=== PATIENT | male | born 1945 | race Caucasian/White ===

== ENCOUNTER 2017-09-10 10:50 | Day surgery (SDC) | payer MEDICARE, OTHER ==
[2017-09-09 15:16] VITALS: BP 152/78
[~2017-09-10] VITALS: Ht 180.3 cm; Wt 101.0 kg
[2017-09-10] VITALS (20 sets, daily range): BP systolic 127–182; BP diastolic 70–101
[~2017-09-10 10:50] MED LIST: ATEN25TA PO; ATOR20TA65 PO; DABI150C PO; LIMBREL PO; LOSA50TA37 PO; OMEP20TA25 PO
[2017-09-10] MEDS: CEFAZOLIN 3GM /D5W 100ML 100 ML IV SCH ×2 (11:00→13:45)
[2017-09-10] MEDS ORDERED: WATER FOR INJECTION,STERILE 20 ML VIAL ONE (11:49)
[2017-09-10] MEDS ORDERED: CEFAZOLIN SODIUM 1 GM VIAL ONE (11:50)
[2017-09-10] MEDS ORDERED: LACTATED RINGERS 1000ML 1,000 ML IV ONE (11:50)
[2017-09-10] MEDS ORDERED: BUPIVACAINE/PF 0.25% 30ML VIAL IJ ONE (13:10)
[2017-09-10] MEDS ORDERED: EPINEPHRINE 1 MG/ML 30ML VIAL IJ ONE (13:10)
[2017-09-10] MEDS ORDERED: NEOSTIGMINE METHYLSULFATE 1MG/ML IV ONE (13:23)
[2017-09-10] MEDS ORDERED: ONDANSETRON HCL 4 MG/2 ML VIAL ONE (13:23)
[2017-09-10] MEDS ORDERED: SUCCINYLCHOLINE 200MG/10ML SYR ONE (13:23)
[2017-09-10] MEDS ORDERED: LIDOCAINE PF 2% 5ML ABBOJECT ONE (13:23)
[2017-09-10] MEDS ORDERED: DEXAMETHASONE SOD PHOSPHATE 10MG/ML 1ML VIAL ONE (13:23)
[2017-09-10] MEDS ORDERED: GLYCOPYRROLATE 0.2 MG/ML 5 ML VIAL ONE (13:23)
[2017-09-10] MEDS ORDERED: PROPOFOL 10 MG/ML 20ML VIAL IV ONE (13:24)
[2017-09-10] MEDS ORDERED: MIDAZOLAM HCL 1 MG/ML 2ML VIAL ONE (13:24)
[2017-09-10] MEDS ORDERED: FENTANYL CITRATE PF 50 MCG/1 ML 2ML VIAL ONE ×2 (13:24→15:25)
[2017-09-10] MEDS ORDERED: EPHEDRINE SULFATE 50 MG/ML AMPULE ONE (14:14)
[2017-09-10] MEDS ORDERED: OCTYL 2-CYANOACRYLATE 1 EACH TP ONE (15:19)
[2017-09-10] MEDS ORDERED: HYDRALAZINE HCL 20 MG/ML VIAL ONE (16:22)
== END 2017-09-10 17:40 | disposition home or self-care (01) ==
LOC: DAH 10:50
PROVIDERS: ATTEND Orthopaedic Surgery
DX: M75.102 Unspecified rotator cuff tear or rupture of left shoulder, not specified as traumatic (principal); M19.012 Primary osteoarthritis, left shoulder; I48.91 Unspecified atrial fibrillation; E66.9 Obesity, unspecified; M75.42 Impingement syndrome of left shoulder; I10 Essential (primary) hypertension; K21.9 Gastro-esophageal reflux disease without esophagitis; E78.5 Hyperlipidemia, unspecified; I25.10 Atherosclerotic heart disease of native coronary artery without angina pectoris; M19.90 Unspecified osteoarthritis, unspecified site; Z98.890 Other specified postprocedural states; Z96.653 Presence of artificial knee joint, bilateral; Z98.49 Cataract extraction status, unspecified eye; G89.29 Other chronic pain; Z68.28 Body mass index [BMI] 28.0-28.9, adult
CPT/HCPCS: 29823; A4565; A4649 ×3; A4930; A6204; J0171; J0330; J0360; J0690; J1100; J2001; J2250; J2405; J2704; J2710; J3010 ×2; J3490 ×2; J7030; J7120

== ENCOUNTER 2018-09-18 16:27 | Emergency (ER) | payer MEDICARE ==
[~2018-09-18 16:27] MED LIST changes: -LOSA50TA37 PO; +LOSA50TA64 PO
[2018-09-18] MEDS ORDERED: ONDANSETRON HCL 4 MG/2 ML VIAL ONE (17:47)
[2018-09-18] MEDS ORDERED: CYCLOBENZAPRINE HCL 10 MG TABLET ONE (17:47)
[2018-09-18] MEDS ORDERED: MORPHINE SULFATE 4 MG/1ML SYG ONE (17:48)
[2018-09-18 17:50] LABS: BASOPHILS % (AUTO) 0.8 % (0.0-5.0); EOSINOPHILS % (AUTO) 3.9 % (0.0-8.0); HEMATOCRIT 40.4 % (42-54); MEAN CORPUSCULAR HGB CONC 32.9 g/dL (32.0-36.0); MEAN CORPUSCULAR VOLUME 97.4 fL (79-99); MONOCYTES % (AUTO) 12.2 % (3.0-13.0); NEUTROPHILS % (AUTO) 69.1 % (40.0-77.0); PLATELET COUNT (AUTO) 167 K/uL (130-400); RED BLOOD CELL COUNT(AUTO) 4.14 MIL/uL (4.50-6.20); RED CELL DISTRIBUTION WIDTH 14.9 % (11.0-15.5); WHITE BLOOD COUNT (AUTO) 8.6 K/uL (4.8-10.8)
[2018-09-18 18:10] LABS: CREATININE 1.1 mg/dL (0.5-1.5); POTASSIUM 5.1 mmol/L (3.5-5.1)
[2018-09-18 18:12] LABS: ALBUMIN 3.6 g/dL (3.5-5.0); BILIRUBIN,TOTAL 0.9 mg/dL (0.2-1.0); TOTAL PROTEIN, SERUM 7.6 g/dL (6.0-8.3)
[2018-09-18] MEDS ORDERED: KETOROLAC TROMETHAMINE 30MG/ML ONE (19:33)
[2018-09-18] MEDS ORDERED: LORAZEPAM 2 MG/ML 1 ML VIAL ONE (19:34)
== END 2018-09-18 20:10 | disposition home or self-care (01) ==
LOC: EDH 16:27
DX: M62.830 Muscle spasm of back (principal); I10 Essential (primary) hypertension; E78.5 Hyperlipidemia, unspecified; I48.91 Unspecified atrial fibrillation; M19.90 Unspecified osteoarthritis, unspecified site; Z98.890 Other specified postprocedural states
CPT/HCPCS: 36415; 71101; 80053; 84484; 85025; 93005; 96374; 96375 ×2; 99284; J1885; J2060; J2270; J2405

== ENCOUNTER 2019-05-22 13:15 | Observation (INO) | payer MEDICARE ==
[~2019-05-22] VITALS: Ht 181.6 cm; Wt 103.1 kg
[~2019-05-22 13:15] MED LIST changes: -ATOR20TA65 PO; -LIMBREL PO
[2019-05-24 14:00] VITALS: BP 140/77
[2019-05-24 14:15] LABS: BASOPHILS % (AUTO) 0.8 % (0.0-5.0); HEMATOCRIT 43.8 % (42-54); LYMPHOCYTES % (AUTO) 25.4 % (21.0-51.0); MEAN CORPUSCULAR HEMOGLOBIN 32.6 pg (27.0-33.0); MEAN CORPUSCULAR HGB CONC 33.9 g/dL (32.0-36.0); MONOCYTES % (AUTO) 12.6 % (3.0-13.0); NEUTROPHILS % (AUTO) 55.2 % (40.0-77.0); PLATELET COUNT (AUTO) 162 K/uL (130-400); RED BLOOD CELL COUNT(AUTO) 4.56 MIL/uL (4.50-6.20); RED CELL DISTRIBUTION WIDTH 14.4 % (11.0-15.5); WHITE BLOOD COUNT (AUTO) 7.2 K/uL (4.8-10.8)
[2019-05-24 14:23] LABS: CREATININE 1.2 mg/dL (0.5-1.5); POTASSIUM 4.8 mmol/L (3.5-5.1)
[2019-05-24] MEDS ORDERED: ATOR20TA65 PO (18:48)
[2019-05-24] MEDS ORDERED: HYDROCODONE/ACETAMIN PO (18:48)
[2019-05-24] MEDS ORDERED: METH500T6 PO (18:48)
[2019-05-25] VITALS (23 sets, daily range): BP systolic 102–144; BP diastolic 50–83
[2019-05-25] MEDS ORDERED: CEFAZOLIN SODIUM 1 GM VIAL ONE (06:26)
[2019-05-25] MEDS ORDERED: LACTATED RINGERS 1000ML 1,000 ML IV ONE (06:26)
[2019-05-25] MEDS: CEFAZOLIN SODIUM 1 GM VIAL IVP ONE ×2 (06:41→07:30)
[2019-05-25] MEDS ORDERED: DURAMORPH PF1 MG/ML 10ML AMP IV ONE (06:43)
[2019-05-25] MEDS ORDERED: BACITRACIN 50,000 UNIT VIAL ONE (06:43)
[2019-05-25] MEDS ORDERED: THROMBIN-JMI 20000 UNIT KIT TP ONE (06:44)
[2019-05-25] MEDS ORDERED: BUPIVACAINE/EPI/PF 0.25% 30ML VIAL IJ SCH (07:00)
[2019-05-25] MEDS ORDERED: PROPOFOL 10 MG/ML 20ML VIAL IV ONE (07:20)
[2019-05-25] MEDS ORDERED: MIDAZOLAM HCL 1 MG/ML 2ML VIAL ONE (07:20)
[2019-05-25] MEDS ORDERED: LIDOCAINE PF 2% 5ML ABBOJECT ONE (07:20)
[2019-05-25] MEDS ORDERED: ROCURONIUM 10MG/1ML SYR 10 MG/ML ML ONE ×2 (07:21→07:48)
[2019-05-25] MEDS ORDERED: FENTANYL CITRATE PF 50 MCG/1 ML 5ML AMP IV ONE (07:21)
[2019-05-25] MEDS ORDERED: GLYCOPYRROLATE 1 MG/5 ML SYRINGE ONE (08:01)
[2019-05-25] MEDS ORDERED: ONDANSETRON HCL 4 MG/2 ML VIAL ONE (08:01)
[2019-05-25] MEDS ORDERED: KETOROLAC TROMETHAMINE 30MG/ML ONE (08:01)
[2019-05-25] MEDS ORDERED: DEXAMETHASONE SOD PHOSPHATE 10MG/ML 1ML VIAL ONE (08:01)
[2019-05-25] MEDS ORDERED: NEOSTIGMINE 5MG/5ML SYR IV ONE (08:01)
[2019-05-25] MEDS ORDERED: EPHEDRINE SULFATE 50 MG/ML AMPULE ONE ×2 (08:18→09:30)
[2019-05-25] MEDS ORDERED: PHENYLEPHRINE HCL 10 MG/ML 1ML VIAL IV ONE (08:51)
[2019-05-25] MEDS ORDERED: MEPERIDINE-PF 25 MG/ML SYG ONE (10:32)
[2019-05-25] MEDS ORDERED: SODIUM CHLORIDE 0.9% 10 ML VIAL IVP PRN (10:45)
[2019-05-25] MEDS ORDERED: HYDROCODONE PO PRN (10:45)
[2019-05-25] MEDS ORDERED: ACETAMINOPHEN PO PRN (10:45)
[2019-05-25] MEDS ORDERED: PROMETHAZINE HCL 25 MG/ML 1ML AMPULE IM PRN (10:45)
[2019-05-25] MEDS ORDERED: CYCLOBENZAPRINE HCL 10 MG TABLET PO PRN (10:45)
[2019-05-25] MEDS ORDERED: MORPHINE SULFATE 2 MG/ML 1ML SYG IVP PRN (10:45)
[2019-05-25] MEDS: PHARMACY COMMUNICATION MISC SCH ×2 (11:00→19:07)
[2019-05-25] MEDS: DEXAMETHASONE SOD PHOSPHATE 4 MG/ML 1ML VIAL IVP SCH ×3 (11:54→22:34)
[2019-05-25] MEDS: LACTATED RINGERS 1000ML 1,000 ML IV SCH ×2 (11:54→22:34)
[2019-05-25] MEDS: HYDROCODONE/ACETAMINOPHEN 5/325 MG TAB PO PRN ×2 (13:37→20:50)
[2019-05-25] MEDS ORDERED: CEFAZOLIN SODIUM 1 GM VIAL IVP SCH (15:00)
--- NOTE | 2019-05-25 19:30 | NUR ---
ACTIVITY AMBULATING IN THE HALLWAY, STEADY GAIT, NO SOB , BACK TO BED, TOLERATED WELL, F/C TO GRAVITY DRAINAGE WITH CLEAR YELLOW URINE, DRESSING LUMBAR AREA D/I
--- NOTE | 2019-05-25 20:45 | NUR ---
ACTIVITY AMBULATED IN THE HALLWAY, STEADY GAIT, NO SOB, BACK TO BED TOLERATED WELL, PATIENTS AT BEDSIDE, TEACH PLAN OF CARE AND EXPECTED OUTCOME, BOTH VERBALIZE UNDERSTANDING VIA TEACH BACK
[2019-05-25] MEDS: ATENOLOL 25 MG TABLET PO SCH (20:54)
[2019-05-25] MEDS ORDERED: DABIGATRAN ETEXILATE MESYLATE 150 MG CAPSULE PO SCH (21:00)
[2019-05-25] MEDS ORDERED: ATORVASTATIN CALCIUM 20 MG TABLET PO SCH (21:00)
[2019-05-26 03:25] VITALS: BP 116/73
[2019-05-26] MEDS: DEXAMETHASONE SOD PHOSPHATE 4 MG/ML 1ML VIAL IVP SCH (05:48)
--- NOTE | 2019-05-26 05:50 | NUR ---
F/C F/C DISCONTINUED ORDERED, TOLERATED WELL, DTV, INSTRUCT PATIENT TO CALL NURSE WHEN URGE TO VOID, URINAL AT BEDSIDE, CALL MORALES AT REACH, PATIENT VERBALIZES UNDERSTANDING VIA TEACH BACK
--- NOTE | 2019-05-26 05:55 | NUR ---
ACTIVITY AMBULATED IN THE HALLWAY, STEADY GAIT, TOLERATED WELL , BACK TO BED
[2019-05-26 08:00] VITALS: BP 127/80
[2019-05-26 09:00] VITALS: BP 127/80
[2019-05-26] MEDS ORDERED: PANTOPRAZOLE SODIUM 40 MG TABLET.DR PO SCH (09:00)
[2019-05-26] MEDS ORDERED: LOSARTAN 50 MG TABLET PO SCH (09:00)
[2019-05-26] MEDS: ATENOLOL 25 MG TABLET PO SCH (09:00)
--- NOTE | 2019-05-26 10:30 | NUR ---
DISCHARGE DISCHARGE TEACHING DONE WITH PATIENT AND USING TEACHBACK METHOD, VERBALIZED UNDERSTANDING. NO NOTED SOB OR DISTRESS. NEW MEDICATION ADMINISTRATION TEACHING DONE WITH PATIENT AND , VERBALIZED UNDERSTANDING. DRESSING CHANGED, MADDISON REMOVED MEASURING 16CM, CATH TIP INTACT. DRESSING TEACHING DONE WITH PATIENT AND USING TEACHBACK METHOD, VERBALIZED UNDERSTANDING. IV REMOVED, CATH TIP INTACT. STAPLE REMOVAL KIT GIVE TO PATIENT. WILL BE TRANSFERRED OUT VIA PRIVATE VEHICLE.
== END 2019-05-26 10:48 | disposition home or self-care (01) ==
LOC: EDSTATUS 05-24 13:00 → DAHIP 05-25 05:52 → 4AH 05-25 11:28
PROVIDERS: ADMIT Neurological Surgery; ATTEND Neurological Surgery
DX: M48.07 Spinal stenosis, lumbosacral region (principal); I48.91 Unspecified atrial fibrillation; Z79.01 Long term (current) use of anticoagulants; M47.816 Spondylosis without myelopathy or radiculopathy, lumbar region; Z96.653 Presence of artificial knee joint, bilateral
CPT/HCPCS: 36415; 63047; 63048 ×2; 71045; 72020; 80048; 85025; 96374; 96375; 96376 ×2; A4215; A4221; A4222; A4223; A4344; A4510; A4600; A4649 ×3; A4663; A6260; G0378 ×24; J0690 ×2; J1100 ×5; J1885; J2001; J2175; J2250; J2274; J2370; J2405; J2704; J2710; J3010; J3490 ×6; J7120 ×3

== ENCOUNTER → 2019-11-06 | Outpatient (CLI) | payer MEDICARE ==
[~2019-11-06] MED LIST changes: +ATOR20TA65 PO; -DABI150C PO; +METH500T6 PO
== END | disposition home or self-care (01) ==
LOC: RAH 10:36
PROVIDERS: ATTEND Orthopaedic Surgery
DX: S46.812A Strain of other muscles, fascia and tendons at shoulder and upper arm level, left arm, initial encounter (principal); M75.102 Unspecified rotator cuff tear or rupture of left shoulder, not specified as traumatic; M25.412 Effusion, left shoulder; M19.012 Primary osteoarthritis, left shoulder; X58.XXXA Exposure to other specified factors, initial encounter; Y93.89 Activity, other specified; Y92.89 Other specified places as the place of occurrence of the external cause; Y99.8 Other external cause status
CPT/HCPCS: 73221

== ENCOUNTER → 2020-12-02 | Outpatient (CLI) | payer MEDICARE ==
[~2020-12-02] MED LIST changes: +DABI75CA3 PO; +HYDR-4060 PO; -METH500T6 PO
== END | disposition home or self-care (01) ==
LOC: OIH 15:42
PROVIDERS: ATTEND Neurological Surgery
DX: M43.17 Spondylolisthesis, lumbosacral region (principal); M51.37 Other intervertebral disc degeneration, lumbosacral region; M48.07 Spinal stenosis, lumbosacral region; I70.8 Atherosclerosis of other arteries
CPT/HCPCS: 72114

== ENCOUNTER → 2021-02-21 | Outpatient (CLI) | payer MEDICARE ==
[2021-02-21 14:35] LABS: BASOPHILS % (AUTO) 0.2 % (0.0-5.0); EOSINOPHILS % (AUTO) 0.4 % (0.0-8.0); HEMATOCRIT 43.5 % (42-54); LYMPHOCYTES % (AUTO) 15.1 % (21.0-51.0); MEAN CORPUSCULAR HEMOGLOBIN 32.3 pg (27.0-33.0); MEAN CORPUSCULAR HGB CONC 32.2 g/dL (32.0-36.0); MEAN CORPUSCULAR VOLUME 100.2 fL (79-99); NEUTROPHILS % (AUTO) 77.8 % (40.0-77.0); PLATELET COUNT (AUTO) 159 K/uL (130-400); RED BLOOD CELL COUNT(AUTO) 4.34 MIL/uL (4.50-6.20); RED CELL DISTRIBUTION WIDTH 14.1 % (11.0-15.5); WHITE BLOOD COUNT (AUTO) 9.4 K/uL (4.8-10.8)
[2021-02-21 14:44] LABS: CREATININE 1.4 mg/dL (0.5-1.5); POTASSIUM 4.7 mmol/L (3.5-5.1)
== END | disposition home or self-care (01) ==
LOC: LAB 02-20 15:55
PROVIDERS: ATTEND Urology
DX: R31.29 Other microscopic hematuria (principal)
CPT/HCPCS: 36415; 80048; 85025

== ENCOUNTER → 2021-02-26 | Outpatient (CLI) | payer MEDICARE ==
[~2021-02-26] MED LIST changes: +IOHEXOL 350 MG/ML 100ML INFUS..BTL IV ONE
== END | disposition home or self-care (01) ==
LOC: RAH 07:41
PROVIDERS: ATTEND Urology
DX: R31.29 Other microscopic hematuria (principal); N32.89 Other specified disorders of bladder
CPT/HCPCS: 74178; Q9967

== ENCOUNTER → 2023-01-14 | Outpatient (CLI) | payer MEDICARE ==
[~2023-01-14] MED LIST changes: -IOHEXOL 350 MG/ML 100ML INFUS..BTL IV ONE; +OMEP20TA20 PO; -OMEP20TA25 PO
== END | disposition home or self-care (01) ==
LOC: SHCH 08:07
PROVIDERS: ATTEND Internal Medicine Cardiovascular Disease
DX: I51.7 Cardiomegaly (principal); I48.21 Permanent atrial fibrillation
CPT/HCPCS: 93306

== ENCOUNTER 2023-01-25 14:13 | Emergency (ER) | payer MEDICARE ==
[~2023-01-25] VITALS: Ht 182.9 cm; Wt 102.1 kg
[2023-01-25 14:19] VITALS: BP 135/86
[2023-01-25 14:46] LABS: BASOPHILS % (AUTO) 0.7 % (0.0-5.0); EOSINOPHILS % (AUTO) 4.1 % (0.0-8.0); HEMATOCRIT 44.8 % (42-54); LYMPHOCYTES % (AUTO) 23.9 % (21.0-51.0); MONOCYTES % (AUTO) 10.6 % (3.0-13.0); NEUTROPHILS % (AUTO) 60.4 % (40.0-77.0); PLATELET COUNT (AUTO) 150 K/uL (130-400); RED BLOOD CELL COUNT(AUTO) 4.62 MIL/uL (4.50-6.20); RED CELL DISTRIBUTION WIDTH 13.7 % (11.0-15.5); WHITE BLOOD COUNT (AUTO) 6.1 K/uL (4.8-10.8)
[2023-01-25 14:54] LABS: CREATININE 1.2 mg/dL (0.5-1.5); POTASSIUM 3.9 mmol/L (3.5-5.1)
[2023-01-25 15:08] LABS: ALBUMIN 3.8 g/dL (3.5-5.0); TOTAL PROTEIN, SERUM 7.3 g/dL (6.0-8.3)
[2023-01-25 15:19] LABS: APPEARANCE,URINE CLEAR (CLEAR); BILIRUBIN,URINE NEGATIVE (NEGATIVE); COLOR,URINE LIGHT-YELLOW (YELLOW); GLUCOSE, URINE (UA) NEGATIVE (NEGATIVE); KETONES,URINE NEGATIVE (NEGATIVE); LEUKOCYTE ESTERASE ,URINE NEGATIVE Leu/uL (NEGATIVE); NITRATE,URINE NEGATIVE (NEGATIVE); OCCULT BLOOD,URINE NEGATIVE (NEGATIVE); PH,URINE 5.5 (5.0-8.0); PROTEIN,URINE NEGATIVE (NEGATIVE); UROBILINOGEN,URINE 0.2 mg/dL (0.2-1.0)
[2023-01-25 15:23] LABS: WBC,URINE 0-1 /HPF (0-1)
== END 2023-01-25 16:00 | disposition home or self-care (01) ==
LOC: EDH 14:13
DX: R07.89 Other chest pain (principal); I48.91 Unspecified atrial fibrillation; K21.9 Gastro-esophageal reflux disease without esophagitis; E78.00 Pure hypercholesterolemia, unspecified; I10 Essential (primary) hypertension; Z79.01 Long term (current) use of anticoagulants; Z79.899 Other long term (current) drug therapy
CPT/HCPCS: 36415; 71045; 80053; 81001; 84484; 85025; 93005

== ENCOUNTER 2024-03-10 07:56 | Observation (INO) | payer MEDICARE, OTHER ==
[~2024-03-10] VITALS: Ht 182.9 cm; Wt 99.8 kg
[2024-03-10 08:20] LABS: BASOPHILS # (AUTO) 0.04 K/uL (0.00-0.20); BASOPHILS % (AUTO) 0.7 % (0.0-5.0); EOSINOPHILS # (AUTO) 0.17 K/uL (0.00-0.70); EOSINOPHILS % (AUTO) 2.9 % (0.0-8.0); HEMATOCRIT 39.4 % (42-54); IMMATURE GRANULOCYTE ABSOLUTE 0.04 K/uL (0-1); LYMPHOCYTES # (AUTO) 1.1 K/uL (1.0-4.8); LYMPHOCYTES % (AUTO) 18.5 % (21.0-51.0); MEAN CORPUSCULAR HEMOGLOBIN 33.5 pg (27.0-33.0); MEAN CORPUSCULAR VOLUME 98.5 fL (79-99); MONOCYTES # (AUTO) 0.7 K/uL (0.1-1.0); MONOCYTES % (AUTO) 11.5 % (3.0-13.0); NEUTROPHILS # (AUTO) 3.9 K/uL (1.8-7.7); NEUTROPHILS % (AUTO) 65.7 % (40.0-77.0); PLATELET COUNT (AUTO) 151 K/uL (130-400); RED CELL DISTRIBUTION WIDTH 14.8 % (11.0-15.5); WHITE BLOOD COUNT (AUTO) 5.9 K/uL (4.8-10.8)
[2024-03-10 08:39] LABS: ALBUMIN 3.5 g/dL (3.5-5.0); BILIRUBIN,TOTAL 0.5 mg/dL (0.2-1.0); CREATININE 1.2 mg/dL (0.5-1.3); MAGNESIUM 1.6 mg/dL (1.80-2.40); POTASSIUM 4.3 mmol/L (3.5-5.1)
[2024-03-10] MEDS: OCTYL 2-CYANOACRYLATE 1 EACH TP ONE (09:59)
[2024-03-10] MEDS ORDERED: POTASSIUM CHLORIDE 10% ELIXIR 20 MEQ/15 ML UDCUP PO PRN (10:30)
[2024-03-10] MEDS ORDERED: KCL 20 MEQ ERTAB PO PRN (10:30)
[2024-03-10] MEDS ORDERED: HYDRALAZINE 20MG/ML VIAL IV PRN (10:30)
[2024-03-10] MEDS ORDERED: POTASSIUM CHLORIDE 20MEQ/100ML 100 ML IV PRN (10:30)
[2024-03-10 10:46] LABS: INR 1.11 (0.85-1.15); PROTHROMBIN TIME 11.9 SEC (9.6-11.6)
[2024-03-10 10:47] LABS: PARTIAL THROMBOPLASTIN TIME 30.4 SEC (26.3-35.5)
[2024-03-10 10:56] LABS: HEMOGLOBIN A1C 5.5 % (4.0-6.0)
[2024-03-10 11:00] LABS: THYROID STIMULATING HORMONE 2.13 uIU/mL (0.36-3.74)
[2024-03-10] MEDS ORDERED: MONT-39 PO (11:08)
[2024-03-10] MEDS ORDERED: ALLO300T2 PO (11:08)
[2024-03-10] MEDS ORDERED: ATEN50TA PO (11:08)
[2024-03-10] MEDS ORDERED: DABI150C PO (11:08)
[2024-03-10] MEDS ORDERED: ATEN25TA PO (11:08)
[2024-03-10] MEDS: ACETAMINOPHEN 500 MG TABLET PO PRN (11:36)
[2024-03-10 11:55] LABS: APPEARANCE,URINE CLEAR (CLEAR); BILIRUBIN,URINE NEGATIVE (NEGATIVE); COLOR,URINE YELLOW (YELLOW); GLUCOSE, URINE (UA) NEGATIVE (NEGATIVE); KETONES,URINE NEGATIVE (NEGATIVE); LEUKOCYTE ESTERASE ,URINE NEGATIVE Leu/uL (NEGATIVE); NITRATE,URINE NEGATIVE (NEGATIVE); OCCULT BLOOD,URINE NEGATIVE (NEGATIVE); PH,URINE 6.5 (5.0-8.0); PROTEIN,URINE NEGATIVE (NEGATIVE); UROBILINOGEN,URINE 0.2 mg/dL (0.2-1.0)
[2024-03-10 11:59] LABS: ADD UA MICROSCOPIC NO
[2024-03-10] MEDS: MORPHINE 2 MG SYG IVP ONE (20:16)
[2024-03-10] MEDS ORDERED: MORPHINE 2 MG SYG IM ONE (20:30)
[2024-03-10] MEDS: FAMOTIDINE 20MG VIAL IV SCH (21:06)
[2024-03-10 22:00] VITALS: O2SAT 99
[2024-03-10 22:09] VITALS: BP 135/78; PULSE 78; RESP 21
[2024-03-10] MEDS: MAGNESIUM 2GM PREMIX 50ML 50 ML IV PRN (22:13)
[2024-03-10 23:25] VITALS: BP 130/71; PULSE 75; RESP 20
[2024-03-11] VITALS (14 sets, daily range): BP systolic 108–163; BP diastolic 27–108; PULSE 65–89; RESP 18–21; O2SAT 98–99
[2024-03-11] MEDS: MORPHINE 2 MG SYG IVP ONE (01:30)
[2024-03-11 07:45] LABS: BASOPHILS # (AUTO) 0.04 K/uL (0.00-0.20); BASOPHILS % (AUTO) 0.5 % (0.0-5.0); EOSINOPHILS # (AUTO) 0.21 K/uL (0.00-0.70); EOSINOPHILS % (AUTO) 2.6 % (0.0-8.0); HEMATOCRIT 40.5 % (42-54); IMMATURE GRANULOCYTE ABSOLUTE 0.05 K/uL (0-1); LYMPHOCYTES # (AUTO) 1.7 K/uL (1.0-4.8); LYMPHOCYTES % (AUTO) 20.6 % (21.0-51.0); MEAN CORPUSCULAR HEMOGLOBIN 33.9 pg (27.0-33.0); MEAN CORPUSCULAR HGB CONC 34.6 g/dL (32.0-36.0); MEAN CORPUSCULAR VOLUME 98.1 fL (79-99); MONOCYTES # (AUTO) 0.7 K/uL (0.1-1.0); MONOCYTES % (AUTO) 8.9 % (3.0-13.0); NEUTROPHILS # (AUTO) 5.4 K/uL (1.8-7.7); NEUTROPHILS % (AUTO) 66.8 % (40.0-77.0); PLATELET COUNT (AUTO) 147 K/uL (130-400); RED BLOOD CELL COUNT(AUTO) 4.13 MIL/uL (4.50-6.20); RED CELL DISTRIBUTION WIDTH 15.2 % (11.0-15.5); WHITE BLOOD COUNT (AUTO) 8.1 K/uL (4.8-10.8)
[2024-03-11 07:58] LABS: CREATININE 1.2 mg/dL (0.5-1.3); POTASSIUM 4.5 mmol/L (3.5-5.1)
[2024-03-11] MEDS: LOSARTAN 50 MG TABLET PO SCH ×2 (08:28→12:30)
[2024-03-11] MEDS: ATENOLOL 25 MG TABLET PO SCH (08:29)
[2024-03-11] MEDS: MECLIZINE HCL 25 MG TABLET PO ONE (09:44)
[2024-03-11] MEDS ORDERED: MECLIZINE HCL 12.5 MG TABLET PO PRN (11:00)
[2024-03-11] MEDS: ATORVASTATIN 20 MG TABLET PO SCH (20:10)
[2024-03-11] MEDS: DABIGATRAN 150MG CAPSULE PO SCH (20:11)
[2024-03-12 04:26] VITALS: BP 141/83; PULSE 78; RESP 20
[2024-03-12 07:44] VITALS: BP_SYST 134; BP_SYST 150; BP_SYST 151; BP_DIAS 74; BP_DIAS 75; BP_DIAS 90; PULSE 68; RESP 20
[2024-03-12 09:06] VITALS: BP 131/104; PULSE 69
[2024-03-12] MEDS ORDERED: MECL-226 PO (09:06)
[2024-03-12] MEDS ORDERED: ATEN25TA PO (09:06)
[2024-03-12 09:57] VITALS: O2SAT 98
== END 2024-03-12 10:20 | disposition home or self-care (01) ==
LOC: EDH 07:56 → INTOOBSV 10:14 → EDHIP 10:14 → 2DH 21:41
PROVIDERS: ADMIT Internal Medicine; ATTEND Internal Medicine
DX: S01.81XA Laceration without foreign body of other part of head, initial encounter (principal); S61.412A Laceration without foreign body of left hand, initial encounter; R55 Syncope and collapse; I49.9 Cardiac arrhythmia, unspecified; I48.21 Permanent atrial fibrillation; I11.9 Hypertensive heart disease without heart failure; E83.42 Hypomagnesemia; E78.5 Hyperlipidemia, unspecified; K21.9 Gastro-esophageal reflux disease without esophagitis; M54.2 Cervicalgia; G89.29 Other chronic pain; M10.9 Gout, unspecified; I25.10 Atherosclerotic heart disease of native coronary artery without angina pectoris; M47.812 Spondylosis without myelopathy or radiculopathy, cervical region; Z98.49 Cataract extraction status, unspecified eye; Z79.899 Other long term (current) drug therapy; Z87.891 Personal history of nicotine dependence; Z96.653 Presence of artificial knee joint, bilateral; Z86.2 Personal history of diseases of the blood and blood-forming organs and certain disorders involving the immune mechanism; W19.XXXA Unspecified fall, initial encounter; Y93.89 Activity, other specified; Y92.89 Other specified places as the place of occurrence of the external cause; Y99.8 Other external cause status
CPT/HCPCS: 99285; 93306; 93880; 70450; 96365; 96375; 71045; 96366; 83036; 84443; 83735; 84484; 80053; 85025 ×2; 85610; 85730; 86140; 81003; 36415 ×2; 72125; 93356; 76376; 12011; 84145; 93005; 97530 ×2; 96376 ×2; 80048; J3475; J3490 ×4; J2270 ×2; G0378